=== PATIENT | female | born 1965 | race Asian ===

== ENCOUNTER → 2016-08-01 | Outpatient (CLI) | payer OTHER ==
[~2016-08-01] MED LIST: BACTRIM DS TABL1 TA1 PO; CERTAGEN PO; CIPRO PO; IBUPROFEN800 MG PO; LORTAB 7.51 TAB PO; MULTI VITAMIN1 EACH PO; PYRIDIUM PO; TRAMADOL HCL50 M1 PO; VICODIN 5/500 T1 TAB PO
--- NOTE | ~2016-08-01 | CR170 ---
[facility] A Service of [facility] & [facility] RADIOLOGY TEXT RESULTS PATIENT: ANGIE HARRELL LOCATION: [facility] : 69 UNIT #: [id number] AGE: [address]: Simone Ravi MD SEX: F ORDER DR: [id number] [facility] [address] [place], [place] [address] [id number] O MR#: [id number] Acc #: [id number] NAME: ANGIE HARRELL : 1965 SEX: F STUDY DATE/TIME: 08/01/2016 13:07 UNIT: [facility] ROOM: STUDY DESCRIPTION: CR Knee 2 Views Rt Attending Physician: Simone Ravi M.D. Referring Physician: Simone Ravi M.D. Ordering Physician: Simone Ravi M.D. Primary Care Physician: Simone Ravi M.D. MEDICAL IMAGING REPORT This report is preliminary unless electronic signature is present EXAM Right knee series, 08/01/2016. HISTORY Pain, swollen painful right knee. No history of trauma. 1 week duration, swelling, difficulty. FINDINGS AP and lateral views of the right knee are presented. No fracture or malalignment. Mild narrowing of all 3 joint space compartments. Small fabella posteriorly. There is a small linear perhaps 3 mm chronic appearing soft tissue calcification along the medial aspect of the knee joint. There is a small chronic appearing soft tissue calcification in the infrapatellar/pretibial region. Small joint effusion in the suprapatellar recess. No soft tissue defect, subcutaneous air or radiodense foreign body. If it would assist in management, knee could be further evaluated with MRI if the patient is a candidate. Dictated by... Luis Diop M.D. THIS IS AN ELECTRONICALLY VERIFIED REPORT Luis Diop M.D. at 08/02/2016 10:25 PM MARTIN/brigida TD: 08/02/2016 02:42 JOB #: [id number] MEDICAL IMAGING REPORT Page 1 of 1 COPY
== END | disposition home or self-care (01) ==
LOC: CRAD 13:00
DX: M25.561 Pain in right knee (principal); M25.461 Effusion, right knee
CPT/HCPCS: 73560

== ENCOUNTER → 2016-08-24 | Outpatient (CLI) | payer OTHER ==
--- NOTE | ~2016-08-24 | MR104 ---
[facility] A Service of [facility] RADIOLOGY TEXT RESULTS PATIENT: ANGIE HARRELL [facility] : [birth year] UNIT #: [id number] AGE: [address]: Luis Vega MD SEX: F ORDER DR: [id number] [facility] [address] [place], [place] [address] [id number] O MR#: [id number] Acc #: [id number] NAME: ANGIE HARRELL : 1965 SEX: F STUDY DATE/TIME: 08/24/2016 15:37 UNIT: [facility] ROOM: STUDY DESCRIPTION: MR Knee Wo Contrast Rt Attending Physician: Luis Vega M.D. Referring Physician: Luis Vega M.D. Ordering Physician: Luis Vega M.D. MRI CENTER REPORT This report is preliminary unless electronic signature is present. EXAM MRI of the right knee without contrast HISTORY 51-year-old female right anterior knee pain and swelling times 6 weeks, hurts to walk. Popping and cracking. No known injury. TECHNIQUE Multiplanar multi-echo imaging of the right knee utilizing a high-field magnet and dedicated protocol. FINDINGS Examination demonstrates minimal spurring along the superior inferior margins of the patella. No focal marrow edema. Minimal knee effusion. Medial and lateral menisci appear intact. Medial and lateral compartment articular cartilage appears normal. Patellar and trochlear cartilage unremarkable. There may be minimal chondromalacia deep trochlear groove. The cruciate and collateral ligaments appear intact. Extensor mechanism unremarkable. Extraarticular soft tissues appear normal. IMPRESSION 1. Mild diffuse thinning of the articular cartilage in all 3 compartments but no areas of high-grade chondromalacia identified. 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 2. Minimal knee effusion. 3. No evidence of meniscal tear. Dictated by... Ruth Osborn M.D. THIS IS AN ELECTRONICALLY VERIFIED REPORT [facility] A Service of [facility] RADIOLOGY TEXT RESULTS PATIENT: ANGIE HARRELL [id number] [birth year] UNIT #: [id number] AGE: [address]: Luis Vega MD SEX: F ORDER DR: Ruth Osborn M.D. at 08/28/2016 2:13 PM JMS/pcl TD: 08/25/2016 20:00 JOB #: [id number] MRI CENTER REPORT Page 1 of 1 COPY
== END | disposition home or self-care (01) ==
LOC: CMRI 14:30
DX: M25.461 Effusion, right knee (principal); M25.561 Pain in right knee; R29.898 Other symptoms and signs involving the musculoskeletal system
CPT/HCPCS: 73721

== ENCOUNTER → 2016-09-11 | Outpatient (CLI) | payer OTHER ==
--- NOTE | ~2016-09-11 | BD1 ---
[facility] A Service of [facility] & [facility] RADIOLOGY TEXT RESULTS PATIENT: ANGIE HARRELL LOCATION: [facility] : 69 UNIT #: [id number] AGE: [address]: MARCELLUS MOHAN SEX: F ORDER DR: [id number] [facility] [address] [place], [place] [address] [id number] O MR#: [id number] Acc #: [id number] NAME: ANGIE HARRELL : 1965 SEX: F STUDY DATE/TIME: 09/11/2016 11:38 UNIT: [facility] ROOM: STUDY DESCRIPTION: BD Dexa Bone Dens 1+ Site Attending Physician: Marcellus Mohan Aprn Ordering Physician: Marcellus Mohan Aprn Primary Care Physician: Marcellus Mohan Aprn MEDICAL IMAGING REPORT This report is preliminary unless electronic signature is present EXAM Bone density spine and hip 09/11/2016 HISTORY Patient weighs 81 pounds. Crepitus in knee, back pain. TECHNIQUE Bone mineral density scanning performed in the upper 4 lumbar vertebral segments and the proximal left femur in this 51-year-old female weighing 81 pounds. The patient states she is not post menopausal. FINDINGS The bone mineral density upper 4 lumbar vertebral segments is 0.820 g/cm2 for a Z-score 1.4 standard deviations below the mean for age-match population. In the proximal left femur, the total bone mineral density is 0.718 g/cm2 for a Z score of 1.4 standard deviations below mean for age-match population and in the left femoral neck, the bone mineral density is 0.604 g/cm2 for a Z score 1.5 standard deviation below mean for age-match population. IMPRESSION 1. The International Society for Clinical Densitometry recommends reference to Z-scores in females prior to menopause. Guidelines suggest a Z-score above -2.0 is "within expected range for age." This patient's Z-scores in the upper 4 lumbar vertebral segments overall, the proximal left femur and left femoral neck are above -2.0. The patient's bone density is felt to be within the expected range for age. Please correlate with the patient's overall clinical status. Continued surveillance recommended as clinically warranted. Dictated by... [facility]. [facility] A Service of [facility] RADIOLOGY TEXT RESULTS PATIENT: ANGIE HARRELL LOCATION: [facility] : 69 UNIT #: [id number] AGE: [address]: MARCELLUS MOHAN SEX: F ORDER DR: Luis Diop M.D. THIS IS AN ELECTRONICALLY VERIFIED REPORT Luis Diop M.D. at 09/13/2016 11:34 AM Kathi TD: 09/12/2016 07:40 JOB #: [id number] MEDICAL IMAGING REPORT Page 1 of 1 COPY
== END | disposition home or self-care (01) ==
LOC: CWCC 09-06 10:00
DX: M25.561 Pain in right knee (principal); M54.9 Dorsalgia, unspecified; R26.9 Unspecified abnormalities of gait and mobility; R63.4 Abnormal weight loss; Z68.1 Body mass index [BMI] 19.9 or less, adult
CPT/HCPCS: 77080

== ENCOUNTER 2016-11-29 22:09 | Emergency (ER) | payer OTHER ==
[~2016-11-29] VITALS: Ht 152.4 cm; Wt 36.3 kg
== END 2016-11-30 00:30 | disposition home or self-care (01) ==
LOC: CFTX 22:09 → CED 22:09 → CFTX 23:59
DX: H66.91 Otitis media, unspecified, right ear (principal)
CPT/HCPCS: 96372; 99282; J1885